=== PATIENT | male | born 1990 | race African-American/Black ===

== ENCOUNTER 2016-10-14 03:54 | Emergency (ER) | payer OTHER ==
[~2016-10-14] VITALS: Ht 177.8 cm; Wt 84.1 kg
[~2016-10-14 03:54] MED LIST: NO; ULTRAM50 M1 PO
[2016-10-14] MEDS ORDERED: SEROQUEL50 MG PO (05:00)
[2016-10-14 05:55] LABS: HEMATOCRIT 43.4 % (39.0-50.0); HEMOGLOBIN 15.4 g/dl (14.0-18.0); IMMATURE GRANULOCYTES 0.2 % (0.0-1.0); MEAN CELL VOLUME 84.3 fL CALC (80.0-100.0); MEAN CORPUSCULAR HGB 29.9 pG CALC (26.0-32.0); MEAN CORPUSCULAR HGB CONC 35.5 g/L CALC (32.0-36.0); NEUT# 9.88 thou/uL (1.82-7.42); RED BLOOD COUNT 5.15 mill/uL (4.70-6.10); RED CELL DISTRI WIDTH 13.1 % (11.5-15.5)
[2016-10-14 06:03] LABS: BARBITURATES NEGATIVE (NEGATIVE); COCAINE NEGATIVE (NEGATIVE); METHADONE NEGATIVE (NEGATIVE); OXCYCODONE NEGATIVE (NEGATIVE); TETRAHYDROCANNABIONOL NEGATIVE (NEGATIVE); TRICYLIC ANTIDEPRESSANTS NEGATIVE (NEGATIVE)
[2016-10-14 06:12] LABS: ALBUMIN 4.6 g/dL (3.2-5.0); ALKALINE PHOSPHATASE 103 u/l (38-126); AMYLASE 85 u/l (30-110); ANION GAP 18 (6-22 (CALC)); BILIRUBIN, TOTAL 0.3 mg/dL (0.0-1.4); BUN 11 mg/dL (9-20); BUN/CREATININE RATIO 12 (12-20 (CALC)); CALCIUM 9.3 mg/dL (8.4-10.2); CARBON DIOXIDE 31 mmol/l (22-30); CHLORIDE 101 mmol/l (95-108); GFR > 60 ML/MIN (>=60 (CALC)); GFR FOR AFR.AMER. > 60 ML/MIN (>=60 (CALC)); GLUCOSE 106 mg/dL (75-110); LIPASE 36 u/l (23-300); POTASSIUM 4.4 mmol/l (3.5-5.1); SGOT/AST 31 u/l (17-59); SGPT/ALT 60 u/l (21-72); SODIUM 145 mmol/l (137-146); TOTAL PROTEIN 8.5 g/dL (6.3-8.2)
[2016-10-14 06:16] LABS: ETHYL ALCOHOL 0 mg/dl (0-30)
[2016-10-14 10:25] VITALS: BP 142/77
== END 2016-10-14 10:40 | disposition designated cancer center or children's hospital (05) | DRG 918 ==
LOC: ED 03:54
PROVIDERS: Emergency Medicine
DX: T42.1X1A Poisoning by iminostilbenes, accidental (unintentional), initial encounter (principal); R11.10 Vomiting, unspecified; S00.211A Abrasion of right eyelid and periocular area, initial encounter; W06.XXXA Fall from bed, initial encounter; Y92.143 Cell of prison as the place of occurrence of the external cause; T42.1X Poisoning by, adverse effect of and underdosing of iminostilbenes